=== PATIENT | female | born 2000 | race Caucasian/White ===

== ENCOUNTER 2025-07-23 17:19 | Emergency (ER) | payer BC, OTHER ==
[~2025-07-23] VITALS: Ht 170.2 cm; Wt 61.2 kg
[2025-07-23] MEDS ORDERED: METOCLOPRAMIDE HCL 10 MG/2 ML VIAL ONE (17:57)
[2025-07-23] MEDS ORDERED: FAMOTIDINE/PF INJ 20 MG/2 ML VIAL IV ONE (17:57)
[2025-07-23 18:02] LABS: PLATELET COUNT (AUTO) 238 K/uL (150-450); RED BLOOD CELL COUNT(AUTO) 4.23 MIL/uL (4.0-5.2); RED CELL DISTRIBUTION WIDTH 12.5 % (11.5-15.0); WHITE BLOOD COUNT (AUTO) 11.3 K/uL (4.3-11.0)
[2025-07-23] MEDS: IV NS 0.9% 1,000 ML BAG IV ONE ×2 (18:05→20:05)
[2025-07-23] MEDS: FAMOTIDINE/PF INJ 20 MG/2 ML VIAL IV ONE (18:07)
[2025-07-23] MEDS: METOCLOPRAMIDE HCL 10 MG/2 ML VIAL IV ONE (18:07)
[2025-07-23 18:10] LABS: CALCIUM, SERUM 8.7 mg/dL (8.5-10.1); CREATININE 0.8 mg/dL (0.6-1.3); SODIUM SERUM 139.0 mmol/L (136-145); UREA NITROGEN, BLOOD 4.0 mg/dL (7-18)
[2025-07-23 18:15] LABS: ASPARTATE AMINOTRANSFERASE 17.0 U/L (15-37); TOTAL PROTEIN, SERUM 7.1 g/dL (6.4-8.2)
[2025-07-23] MEDS ORDERED: TIRZEPATIDE SQ (18:30)
[2025-07-23] MEDS ORDERED: MORPHINE SULFATE INJ 4 MG/ML DISP.SYRIN ONE (18:36)
[2025-07-23] MEDS: MORPHINE SULFATE INJ 2 MG/ML DISP.SYRIN IV ONE (18:47)
[2025-07-23] MEDS: PIPERACILLIN /TAZOBACTAM 3.375 G in IV D5W 50 ML IV ONE (18:47)
[2025-07-23] MEDS ORDERED: PIPERACI/TAZO 3.375GM/D5W 50ML PB IV ONE (18:52)
[2025-07-23 18:59] LABS: APPEARANCE,URINE CLEAR (CLEAR); BLOOD, URINE NEGATIVE Ery/uL (NEGATIVE); LEUKOCYTE ESTERASE ,URINE NEGATIVE (NEGATIVE); NITRITE, URINE NEGATIVE (NEGATIVE); UGLUCOSE NEGATIVE (NEGATIVE)
[2025-07-23 19:00] LABS: PREGNANCY TEST URINE QUAL NEGATIVE (NEGATIVE)
[2025-07-23] MEDS ORDERED: IOHEXOL-300 100 ML VIAL IV ONE (19:06)
[2025-07-23] MEDS ORDERED: CT SWABBABLE VALVE TRANS SET 1 EA INFUS.SET MC ONE (19:06)
[2025-07-23] MEDS ORDERED: IV NS 0.9% 250 ML IV ONE (19:06)
[2025-07-23 19:08] LABS: ADD URINE CULTURE YES; SQUAMOUS EPITHELIAL CELL,UR Many /HPF (None Seen)
[2025-07-23] MEDS: POTASSIUM CL. PREMIX PERIPHER. 50 ML IV SCH (19:45)
[2025-07-23 20:15] VITALS: TEMP 97.9
[2025-07-23] MEDS ORDERED: METO-295 PO (21:18)
[2025-07-23 21:34] VITALS: BP 117/80; O2SAT 100
== END 2025-07-23 21:46 | disposition home or self-care (01) ==
LOC: ER 17:19 → MED 20:53 → UNDOADMIN 20:53 → UNDODISIN 21:35 → MED 21:40 → TELE IN 21:40 → ER 21:46
DX: R10.10 Upper abdominal pain, unspecified (principal); E87.6 Hypokalemia; R11.0 Nausea
CPT/HCPCS: 99285; 74177; 96365; 76705; 96361; 96375 ×2; 85025; 80048; 87077; 87086; 83690; 80076; 84703; 81001; 36415; 87081; J2270; J1308; J2765; J2543 ×2; J7060; J7030; J7050; J3480; Q9967; G0378

== ENCOUNTER 2025-07-25 09:55 | Emergency (ER) | payer OTHER, BC ==
[~2025-07-25] VITALS: Ht 170.2 cm; Wt 59.0 kg
[~2025-07-25 09:55] MED LIST: METO-295 PO; TIRZEPATIDE SQ
[2025-07-25 10:10] VITALS: BP 117/88; TEMP 98.6; O2SAT 99
[2025-07-25] MEDS ORDERED: HALOPERIDOL LACTATE INJ 5 MG/ML VIAL ONE (10:22)
[2025-07-25] MEDS: HALOPERIDOL LACTATE INJ 5 MG/ML VIAL IV ONE (10:24)
[2025-07-25] MEDS: IV NS 0.9% 1,000 ML BAG IV ONE (10:24)
[2025-07-25] MEDS ORDERED: METO-295 PO (10:32)
[2025-07-25 10:56] LABS: PLATELET COUNT (AUTO) 246 K/uL (150-450); RED BLOOD CELL COUNT(AUTO) 4.49 MIL/uL (4.0-5.2); RED CELL DISTRIBUTION WIDTH 12.9 % (11.5-15.0); WHITE BLOOD COUNT (AUTO) 7.5 K/uL (4.3-11.0)
[2025-07-25 11:06] LABS: CALCIUM, SERUM 8.8 mg/dL (8.5-10.1); CREATININE 0.8 mg/dL (0.6-1.3); SODIUM SERUM 139.0 mmol/L (136-145); UREA NITROGEN, BLOOD 3.0 mg/dL (7-18)
[2025-07-25 11:12] LABS: ASPARTATE AMINOTRANSFERASE 16.0 U/L (15-37); TOTAL PROTEIN, SERUM 7.3 g/dL (6.4-8.2)
[2025-07-25] MEDS ORDERED: LORAZEPAM INJ 2 MG/ML VIAL ONE (11:37)
[2025-07-25] MEDS: LORAZEPAM INJ 2 MG/ML VIAL IV ONE (11:42)
[2025-07-25 12:44] LABS: APPEARANCE,URINE CLEAR (CLEAR); BLOOD, URINE NEGATIVE Ery/uL (NEGATIVE); LEUKOCYTE ESTERASE ,URINE NEGATIVE (NEGATIVE); NITRITE, URINE NEGATIVE (NEGATIVE); UGLUCOSE NEGATIVE (NEGATIVE)
== END 2025-07-25 13:41 | disposition short-term general hospital (02) ==
LOC: ER 09:58
DX: E86.0 Dehydration (principal); F12.90 Cannabis use, unspecified, uncomplicated; R11.16 Cannabis hyperemesis syndrome
CPT/HCPCS: 99285; 96374; 76705; 96361; 96375; 93005; 85025; 80048; 83690; 80076; 84703; 81003; 36415; J2060; J1630; J7030